=== PATIENT | male | born 1990 | race Caucasian/White ===

== ENCOUNTER 2020-02-22 08:57 | Day surgery (SDC) | payer OTHER ==
[~2020-02-22] VITALS: Ht 182.9 cm; Wt 90.9 kg
[~2020-02-22 08:57] MED LIST: SODIUM CHLORIDE 0.9% 1,000 ML ONE
[2020-02-22] MEDS ORDERED: PROPOFOL 1% 20 ML VIAL IVP ONE (08:58)
[2020-02-22] MEDS ORDERED: LIDOCAINE/PF 2% 5 ML SYRINGE IVP ONE (08:58)
[2020-02-22] MEDS ORDERED: SODIUM CHLORIDE 0.9% 1,000 ML IV ONE (09:00)
== END 2020-02-22 12:30 | disposition home or self-care (01) ==
LOC: SURGERY 08:57
PROVIDERS: ATTEND Student in an Organized Health Care Education/Training Program
DX: K31.89 Other diseases of stomach and duodenum (principal); K44.9 Diaphragmatic hernia without obstruction or gangrene; K21.0 Gastro-esophageal reflux disease with esophagitis; K29.50 Unspecified chronic gastritis without bleeding; Z87.891 Personal history of nicotine dependence
CPT/HCPCS: 43239; 87635; 88305; 88312; 88313; C1769; J2704; J3490; J7030